=== PATIENT | female | born 1985 | race African-American/Black ===

== ENCOUNTER 2019-10-02 10:54 | Observation (INO) ==
[2019-10-02] MEDS ORDERED: NS 1,000 ML IV ONE ×2 (11:14→13:18)
[2019-10-02] MEDS ORDERED: ZOFRAN IV ONE (11:14)
[2019-10-02 11:54] LABS: BASO# 0.01 X1000 (0.0-0.2); BASO% 0.1 % (0.0-0.8); EOS# 0.02 X1000 (0.0-0.7); EOS% 0.2 % (0.0-10.0); HEMATOCRIT 40.9 % (37.0-47.0); HEMOGLOBIN 13.4 g/dL (12.0-16.0); IMM GRAN# 0.04 X1000 (0.0-0.04); IMM GRAN% 0.4 % (0.0-0.5); LYMPH# 1.07 X1000 (1.2-3.4); LYMPH% 11.4 % (20.5-51.1); MCH 29.6 PG (27-31); MCHC 32.8 g/dL (33-37); MCV 90.3 FL (81-99); MONO# 0.52 X1000 (0.11-0.59); MONO% 5.5 % (1.7-9.3); MPV 9.9 FL (7.4-10.4); NEUT# 7.72 X1000 (1.4-6.5); NEUT% 82.4 % (42.2-75.2); PLT 367 X1000 (130-400); RBC 4.53 XMIL (4.2-5.4); RDW 13.2 % (11.5-14.5); WBC 9.38 X1000 (4.8-10.8)
[2019-10-02] MEDS ORDERED: ATIVAN IV ONE (11:54)
[2019-10-02] MEDS ORDERED: PROTONIX IV ONE (11:54)
[2019-10-02] MEDS ORDERED: SODIUM CHLORIDE 0.9% INJ ONE (11:54)
[2019-10-02 12:24] LABS: AGAP 11; ALB/GLOB RATIO 1.3; ALBUMIN 4.1 g/dL (3.5-5.0); ALKALINE PHOSPHATASE 72 U/L (32-104); AMYLASE 58 U/L (20-200); BUN 15 mg/dL (8-22); CALCIUM 9.2 mg/dL (8.8-10.2); CHLORIDE 99 mmol/L (98-107); COSMO 270; CREATININE 0.7 mg/dL (0.5-0.9); ESTIMATED GFR > 60; GLUCOSE 146 mg/dL (70-104); GOT 16 U/L (10-30); GPT 17 U/L (10-36); LIPASE 15 U/L (13-60); POTASSIUM 3.8 mmol/L (3.5-5.1); SODIUM 133 mmol/L (136-145); TCO2 23 mmol/L (25-35); TOTAL BILIRUBIN 0.35 mg/dL (0.20-1.00); TOTAL PROTEIN 7.2 g/dL (6.3-8.3)
[2019-10-02 12:42] LABS: URINE SOURCE CLEAN CATCH
[2019-10-02 12:47] LABS: BILIRUBIN URINE NEGATIVE (NEGATIVE); BLOOD URINE NEGATIVE (NEGATIVE); COLOR YELLOW; GLUCOSE URINE NEGATIVE (NEGATIVE); KETONE URINE 20 mg/dL (NEGATIVE); LEUKOCYTES URINE NEGATIVE (NEGATIVE); NITRITE URINE NEGATIVE (NEGATIVE); PH URINE 8.5; PROTEIN URINE TRACE mg/dL (NEGATIVE); SP GRAVITY URINE 1.028; TURBIDITY URINE CLEAR (CLEAR); UROBILINOGEN URINE NORMAL (NORMAL)
[2019-10-02 13:04] LABS: UR AMPHETAMINES QUAL NONE DETECTED (NONE DETECT); UR BARBITUATES QUAL NONE DETECTED (NONE DETECT); UR BENZODIAZEPIN QUAL NONE DETECTED (NONE DETECT); UR CANNABINOIDS QUAL PRESUMPTIVE POSITIVE (NONE DETECT); UR COCAINE QUAL PRESUMPTIVE POSITIVE (NONE DETECT); UR EPITHELIAL CELLS <10 /HPF (<10); UR METHADONE QUAL NONE DETECTED (NONE DETECT); UR OPIATES QUAL NONE DETECTED (NONE DETECT); UR OXYCODONE QUAL NONE DETECTED (NONE DETECT); UR PCP QUAL NONE DETECTED (NONE DETECT); URINE BACTERIA NEGATIVE /HPF; URINE RBC <10 /HPF (<10); URINE WBC <10 /HPF (<10)
[2019-10-02] MEDS ORDERED: COMPAZINE IV ONE (13:18)
--- NOTE | 2019-10-02 16:56 | PROVIDER DOCUMENTATION ---
This chart was entered by Michelle Dennis Scribe, acting as scribe for Yoav Goff MD. HPI-General Adult - General Chief Complaint: N/V/D Stated Complaint: VOMITING Time Seen by Provider: 10/02/19 11:11 Source: patient Allergies/Adverse Reactions: Patient Allergies Allergy/AdvReac Type Severity Reaction Status Date / Time No Known Allergies Allergy Verified 10/02/19 11:45 Home Medications: Home Medication List Medication Instructions Recorded Confirmed Last Taken Type NK [No Home Medications] 10/02/19 10/02/19 Unknown History - History of Present Illness -Gen Adult Nature of Presenting Problems: Patient is a 34 year old female who presents with nausea, vomiting, diarrhea and chills. States symptoms started at 0430 this morning. Reports history of cyclic vomiting syndrome. States she smoked marijuana yesterday. Denies recent travel. Location of Pain/Injury: reports: none Quality of Pain: reports: none Severity: reports: mild Onset/Duration: reports: this morning (0430) Timing: reports: still present Context/Activities at Onset: reports: light activity Associated Symptoms: reports: diarrhea, fever/chills (chills), nausea, vomiting Similar Symptoms Previously?: No Recently seen or treated by another doctor?: No Review of Systems - Adult - REVIEW OF SYSTEMS - ADULT Constitutional: reports: see HPI, chills. denies: fever Eyes: reports: no symptoms reported Ears, Nose, Mouth & Throat: reports: no symptoms reported Cardiovascular: reports: no symptoms reported Respiratory: reports: no symptoms reported Gastrointestinal: reports: see HPI, diarrhea, nausea, vomiting. denies: abdominal pain Genitourinary: reports: no symptoms reported Musculoskeletal: reports: no symptoms reported Integumentary: reports: no symptoms reported Neurological: reports: no symptoms reported Psychiatric: reports: no symptoms reported Endocrine: reports: no symptoms reported Hematologic/Lymphatic: reports: no symptoms reported Allergic/Immunologic: reports: no symptoms reported All Other Systems: Reviewed and Negative Past History - Adult - PAST MEDICAL HISTORY-ADULT Review of Records: reports: Old Records Reviewed, Nursing Assessment Review, M edications Reviewed, Social history reviewed & non-contributory. Major Childhood Illnesses: reports: denies history Cardiovascular: denies: arrhythmia, CAD, HTN Respiratory: denies: bronchitis, lung disease Gastrointestinal: reports: GERD. denies: IBS Obstetrical/Gynecological: reports: denies history Genitourinary: reports: chronic UTI's. denies: kidney disease, epididymitis Musculoskeletal: denies: arthritis, neck/back injury Neurological: reports: denies history Psychiatric: reports: denies history Endocrine/Immune: reports: denies history Other Conditions: reports: denies history - PRIOR SURGERIES/PROCEDURES Surgical/Procedure History: reports: reviewed, not pertinent - IMMUNIZATION STATUS Childhood Immunizations: See Nurse Assessment Flu Vaccine: See Nurse Assessment - FAMILY HISTORY Family History: reviewed, not pertinent - SOCIAL HISTORY Smoking: cigarettes, less than 1 pack/day Provider spent 3-5 mins advising pt. on dangers of tobacco.: Discussed manners to quit use, and f/u contacts for add'l counseling. Substance Use: alcohol, marijuana Alcohol Use Frequency: occasionally Living Situation: family Physical Exam-General - PHYSICAL EXAM-ADULT Initial Vital Signs Reviewed: Yes - CONSTITUTIONAL General Appearance: alert, mild distress, obese. negative: lethargic - RESPIRATORY Respiratory: chest non-tender, lungs clear, normal breath sounds. negative: wheezing - CARDIOVASCULAR Cardiovascular: regular rate, rhythm. negative: tachycardia, systolic murmur - GASTROINTESTINAL (ABDOMEN) Abdominal Exam: normal bowel sounds, non tender, soft. negative: guarding - MUSCULOSKELETAL Extremity: non-tender, normal inspection. negative: pedal edema - SKIN Integumentary: normal color, normal turgor, warm/dry. negative: diaphoresis, pallor - NEUROLOGIC Neurologic: grossly normal. negative: aphasia, facial droop - PSYCHIATRIC Psych/Mental Status: normal mood/affect, normal thought content, normal thought process, oriented x 3. negative: anxious, paranoid Progress - PLAN OF CARE/RESULTS Progress/Plan/Lab Results: Vital Signs - 8 hr 10/02/19 10:59 10/02/19 11:09 Temperature 98.2 F 98.5 F Pulse Rate 85 86 Respiratory Rate 16 18 Blood Pressure 144/94 O2 Sat by Pulse Oximetry 100 99 Orders Category Date Time Status ED: Urine Bedside ORDERED Care 10/02/19 11:13 Active Saline Loc DIRECTED Care 10/02/19 11:13 Active NPO Diet 10/02/19 11:13 Active AMYLASE [CHEM] Stat Lab 10/02/19 11:30 Received CBC WITH ELECTRONIC DIFF [HEME] Stat Lab 10/02/19 11:30 Results COMPREHENSIVE METABOLIC PANEL [CHEM] Stat Lab 10/02/19 11:30 Received LIPASE [CHEM] Stat Lab 10/02/19 11:30 Received TEST-URINE [PREG] Stat Lab 10/02/19 11:13 Uncollected URINALYSIS W/POSS RFLX CULT [URINALYSIS] Stat Lab 10/02/19 11:13 Uncollected URINE DRUG SCREEN Stat Lab 10/02/19 11:14 Uncollected 0.9% Sodium Chloride Inj [Ns] 1,000 ml Med 10/02/19 11:14 Active IV 999 mls/hr Ondansetron [Zofran] Med 10/02/19 11:14 Discontinued 4 mg IV NOW ONE Result Diagrams: 10/02/19 11:30 10/02/19 11:30 - REASSESSMENT Reassessment #2 Time Reassessed: 14:52 Status: unchanged (despite serial anti-emetic Rx and IVF, pt continues to vomit, feels "too weak to leave." UDS noted, other labs wnl: will consult Hospitalist for admit.) - CONSULTS/PCP/HOSPITALIST Notification #1 *Consult/PCP/Hospitalist*: MIR Jackson for Hospitalist Time Discussed: 15:22 Reason/Comments: Dr. Goff consulted with Renetta about patient Consult Disposition: Will see in ED, Admit Departure - Departure Date of Disposition Decision: 10/02/19 Time of Disposition Decision: 15:22 DIAGNOSIS: Cyclic vomiting syndrome Disposition: ADMITTED INPATIENT 09 Certified Medical Emergency: Emergent Condition: Stable - Critical Care Note This patient required my direct & personal management of CC.: No Attestation - Physician/ MADAI Attestation The physician spent face to face time with patient:: Yes Advanced Practice Provider documentation review:: Supervising physician onsite and consulted in the evaluation and care of this patient. The physician did have a face to face encounter with the patient. This chart was documented by the indicated scribe, (Michelle Dennis Scribe) and accurately reflects the services I performed and decisions made by me, Yoav Goff MD, as attested by the provider's signature.
[2019-10-02] MEDS: ZOFRAN IV PRN (18:42)
[2019-10-02] MEDS: NS 1,000 ML IV SCH (18:43)
--- NOTE | 2019-10-02 19:26 | HISTORY AND PHYSICAL ---
PRIMARY CARE PROVIDER: None. CHIEF COMPLAINT: Nausea, vomiting, and diarrhea. HISTORY OF PRESENT ILLNESS: Ms. Simon is a 34-year-old female who came to the ED complaining of nausea, vomiting, diarrhea, and chills that started around 4:30 this morning with a history of cyclic vomiting syndrome, gastritis, marijuana and cocaine use. She was given Zofran and Phenergan as well as Compazine in the ED without any relief of her symptoms and was admitted for intractable nausea and vomiting. The patient is currently resting well in the bed sleeping. She will awaken easily to touch. We will continue with IV hydration, Protonix q.12 hours x4 doses, p.r.n. Zofran and IV hydration. Continue with further treatment and evaluation. PAST MEDICAL HISTORY: History of cyclic vomiting, history of gastritis, positive for marijuana and cocaine. PAST SURGICAL HISTORY: Denies. SOCIAL HISTORY: Denies tobacco. Occasional alcohol, marijuana. Positive for cocaine. FAMILY HISTORY: Noncontributory. ALLERGIES: No known drug allergies. HOME MEDICATIONS: None. REVIEW OF SYSTEMS: Completely negative except for those mentioned in HPI. PHYSICAL EXAMINATION: VITAL SIGNS: Temperature is 98.5 degrees, heart rate 75, respirations 19, blood pressure 108/56, O2 is 100% on room air. GENERAL: Ms. Simon is sleeping on the ER stretcher. She awakens easily to voice and light touch. HEENT: Atraumatic, normocephalic. PERRL. NECK: Supple. Trachea midline. CARDIOVASCULAR: S1, S2 appreciated. No murmurs, gallops, rubs noted. No JVD. No lower extremity edema. SKIN: Warm, dry, and intact. NEUROLOGIC: No focal deficits noted. The patient is somewhat sleepy secondary to medications and answers all questions appropriate, awakens easily. LABORATORY DATA: White count 9, hemoglobin and hematocrit 13 and 40, platelet count is 367,000. Chemistry: Sodium 133, potassium 3.8, BUN 15, creatinine 0.7. Blood glucose is 146. Amylase 58, lipase 15. Urinalysis is negative. Toxicology screen positive for cocaine and cannabinoids. ASSESSMENT AND PLAN: 1. Intractable nausea and vomiting in the setting of marijuana use. The patient reported that she smoked marijuana yesterday. We will continue with antiemetics and IV fluid. 2. Gastritis. We will continue with IV PPI x4 doses and transition to p.o. 3. Morbid obesity. 4. Marijuana use. Will need daily education on cessation. 5. Cocaine positive. Will need education on abstinence. 6. Further recommendations to follow physician evaluation, laboratory and diagnostic data. Dictated by MIR Guzman for Jose Antonio Guerrero MD cc: Jose Antonio Guerrero MD
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
[2019-10-03] MEDS ORDERED: SODIUM CHLORIDE 0.9% INJ PRN (01:00)
[2019-10-03] MEDS ORDERED: PROTONIX IV SCH (01:00)
[2019-10-03] MEDS: NS 1,000 ML IV SCH (03:30)
[2019-10-03] MEDS: ZOFRAN IV PRN ×2 (03:30→08:06)
[2019-10-03 07:38] VITALS: BP 120/71
[2019-10-03 08:06] LABS: HEMATOCRIT 39.1 % (37.0-47.0); HEMOGLOBIN 12.7 g/dL (12.0-16.0); IMM GRAN# 0.03 X1000 (0.0-0.04); IMM GRAN% 0.2 % (0.0-0.5); LYMPH# 1.57 X1000 (1.2-3.4); LYMPH% 12.5 % (20.5-51.1); MCH 29.5 PG (27-31); MCHC 32.5 g/dL (33-37); MCV 90.9 FL (81-99); MONO# 0.63 X1000 (0.11-0.59); MPV 10.1 FL (7.4-10.4); NEUT# 10.36 X1000 (1.4-6.5); NEUT% 82.3 % (42.2-75.2); PLT 330 X1000 (130-400); RDW 13.2 % (11.5-14.5); WBC 12.59 X1000 (4.8-10.8)
[2019-10-03 08:22] LABS: AGAP 11; ALB/GLOB RATIO 1.3; ALKALINE PHOSPHATASE 70 U/L (32-104); BUN 9 mg/dL (8-22); CALCIUM 9.2 mg/dL (8.8-10.2); CHLORIDE 102 mmol/L (98-107); COSMO 276; CREATININE 0.7 mg/dL (0.5-0.9); ESTIMATED GFR > 60; GLUCOSE 124 mg/dL (70-104); GOT 14 U/L (10-30); GPT 14 U/L (10-36); MAGNESIUM 1.8 mg/dL (1.5-2.7); POTASSIUM 3.4 mmol/L (3.5-5.1); SODIUM 138 mmol/L (136-145); TCO2 25 mmol/L (25-35); TOTAL BILIRUBIN 0.31 mg/dL (0.20-1.00); TOTAL PROTEIN 7.2 g/dL (6.3-8.3)
--- NOTE | 2019-10-04 09:09 | DISCHARGE SUMMARY ---
ADMISSION DATE: 10/02/2019 DISCHARGE DATE: 10/03/2019 DISPOSITION: Home. FOLLOW-UP: Will be patient's primary care physician. CONSULTATION DURING THIS ADMISSION: None. DIAGNOSES: 1. Intractable nausea vomiting. 2. Gastritis. 3. Marijuana use. 4. Cocaine. DIAGNOSES AT THE TIME OF DISCHARGE: 1. By mouth intolerance. 2. Intractable nausea and vomiting. 3. Gastroenteritis. 4. Recreational drug use and abuse with urine toxicology positive for cocaine and cannabinoids. 5. History of gastritis. DISCHARGE MEDICATIONS: None. PRESENTING COMPLAINT: Nausea, vomiting, diarrhea. HISTORY OF PRESENTING COMPLAINT: Ms. Simon is a 34-year-old female who came to the emergency room because of because of nausea, vomiting with diarrhea the day prior to admission. Upon presentation, she continues to be nauseated and vomiting. She was given a Compazine and was admitted due to p.o. intolerance. Ms. Simon was admitted to the medical floor, was adequately fluid resuscitated and treated with symptomatic management. Over the course of the short hospital stay, she significantly improved. She was requested to have stool studies done. Unfortunately, she did not have any more bowel movement during the hospital course. Unsure if she was having diarrhea or if it just got resolved before she came to the hospital. In any case, she has been able to tolerate her feeding this morning. She herself thinks that she is back to her baseline. We have addressed her urine toxicology result and have advised that she refrain from using the recreational drugs. Ms. Simon refers to voiced understanding. Discharge time is 31 minutes. cc: Jose Antonio Guerrero MD MTDD
== END 2019-10-03 11:51 | disposition home or self-care (01) ==
LOC: EDIPHOLD 10:54 → ED 10:54 → 3N 19:42
PROVIDERS: ATTEND Internal Medicine